=== PATIENT | female | born 1995 ===

== ENCOUNTER 2016-07-02 12:56 | Emergency (ER) | payer MEDICAID ==
[2016-07-02 13:33] VITALS: BP 127/89; PULSE 75; RESP 18; TEMP 98.4; O2SAT 98
--- NOTE | 2016-07-02 13:53 | C.PDOC ---
History Of Present Illness 20 Y/O FEMALE PRESENTS TO ED WITH C/O SORE THROAT, EAR PAIN, SINUS CONGESTION, AND RUNNY NOSE FOR 4 DAYS. PT'S SISTER ALSO IN ER WITH SIMILAR SYMPTOMS. STATES "I FEEL LIKE I HAVE THE FLU". PT DENIES FEVER, CHILLS, NAUSEA, VOMITING, DIARRHEA, COUGH, SHORTNESS OF BREATH, OR OTHER COMPLAINTS. EXAM NEG Time Seen by Provider: 07/02/16 13:13 History Per: Patient History/Exam Limitations: no limitations Onset/Duration Of Symptoms: Days Current Symptoms Are (Timing): Still Present Location Of Pain: Throat Sick Contacts (Context): Family Member(s) Associated Symptoms: Sinus Drainage, Nasal Congestion. denies: Fever, Chills, Cough, Vomiting, Diarrhea Ear Symptoms: Bilateral: Ear Pain Recent travel outside of the [place]: No Past Medical History Reviewed: Historical Data, Nursing Documentation, Vital Signs Vital Signs: Last Vital Signs Temp 98.4 F 07/02/16 13:29 Pulse 75 07/02/16 13:29 Resp 18 07/02/16 13:29 BP 127/89 07/02/16 13:29 Pulse Ox 98 07/02/16 13:53 - Medical History PMH: No Chronic Diseases Family History: States: Unknown Family Hx - Social History Hx Alcohol Use: No Hx Substance Use: No - Immunization History Hx Tetanus Toxoid Vaccination: No Hx Influenza Vaccination: No Hx Pneumococcal Vaccination: No Review Of Systems Except As Marked, All Systems Reviewed And Found Negative. Constitutional: Negative for: Fever, Chills ENT: Positive for: Ear Pain, Throat Pain Respiratory: Negative for: Cough, Shortness of Breath Gastrointestinal: Negative for: Vomiting Skin: Negative for: Rash Neurological: Negative for: Headache, Dizziness Physical Exam - Physical Exam Appears: Non-toxic, No Acute Distress Skin: Normal Color, Warm, Dry Head: Atraumatic, Normacephalic Eye(s): bilateral: Normal Inspection, PERRL, EOMI Ear(s): Bilateral: Normal Nose: Normal Oral Mucosa: Moist Throat: Normal, No Erythema, No Exudate, No Drooling Neck: Supple Chest: Symmetrical Cardiovascular: Rhythm Regular Respiratory: Normal Breath Sounds, No Rales, No Rhonchi, No Wheezing Gastrointestinal/Abdominal: Soft, No Tenderness, No Guarding, No Rebound Back: Normal Inspection Extremity: Normal ROM, Capillary Refill (< 2 SEC.) Neurological/Psych: Oriented x3 ED Course And Treatment O2 Sat by Pulse Oximetry: 98 (RA) Pulse Ox Interpretation: Normal Disposition Counseled Patient/Family Regarding: Diagnosis, Need For Followup - Disposition Referrals: [facility] [Outside] [facility] [Outside] Disposition: HOME/ ROUTINE Disposition Time: 13:52 Condition: GOOD Additional Instructions: TAKE ANY OVER THE COUNTER "COLD MEDICINE" DIRECTED NEEDED Instructions: Cold Symptoms (ED) - Clinical Impression Clinical Impression: Cold - Scribe Statement The provider has reviewed the documentation as recorded by the Kerri Alva Provider Attestation: All medical record entries made by the Kerri were at my direction and personally dictated by me. I have reviewed the chart and agree that the record accurately reflects my personal performance of the history, physical exam, medical decision making, and the department course for this patient. I have also personally directed, reviewed, and agree with the discharge instructions and disposition.
== END 2016-07-02 14:20 | disposition home or self-care (01) ==
LOC: C.ER 12:56
DX: J00 Acute nasopharyngitis [common cold] (principal)

== ENCOUNTER 2016-08-13 09:38 | Emergency (ER) | payer MEDICAID ==
[2016-08-13 10:01] VITALS: TEMP 98.3
--- NOTE | 2016-08-13 10:06 | C.PDOC ---
History Of Present Illness 21 yo female, no prior hx, presents with right adexal pain she had for 3 days. pt states she has a ovarian cyst. pt states no fevers, n/v/d, urinary changes, Time Seen by Provider: 08/13/16 09:54 Chief Complaint (Nursing): Abdominal Pain Past Medical History Reviewed: Historical Data, Nursing Documentation, Vital Signs Vital Signs: Last Vital Signs Temp 98.3 F 08/13/16 09:58 Pulse 68 08/13/16 13:50 Resp 18 08/13/16 13:50 BP 122/77 08/13/16 13:50 Pulse Ox 100 08/13/16 13:50 Family History: States: Unknown Family Hx - Social History Hx Alcohol Use: No Hx Substance Use: No - Immunization History Hx Tetanus Toxoid Vaccination: No Hx Influenza Vaccination: No Hx Pneumococcal Vaccination: No Review Of Systems Gastrointestinal: Positive for: Nausea. Negative for: Vomiting Genitourinary: Positive for: Pelvic Pain (right adexal) Physical Exam - Physical Exam Appears: Well, No Acute Distress, Other (smiling in nad) Skin: Normal Color, Warm, Dry Eye(s): bilateral: Normal Inspection, PERRL, EOMI Nose: Normal Throat: Normal Neck: Normal Cardiovascular: Rhythm Regular Respiratory: Normal Breath Sounds Gastrointestinal/Abdominal: Normal Exam, Soft, Tenderness (right adexal), No Guarding, No Rebound Back: Normal Inspection Extremity: Normal ROM ED Course And Treatment - Laboratory Results Result Diagrams: 08/13/16 10:32 08/13/16 10:32 O2 Sat by Pulse Oximetry: 98 Medical Decision Making Medical Decision Making: suspected ovarian cyst. pt well appearing mild pain. will get us and reassess 220: US shows cyst. pt well appearing in nad. on phone. stable for outpt mangement. Disposition - Disposition Referrals: Jas Navarro [Staff Provider] - [facility] [Outside] [facility] [Outside] [facility] [Outside] Disposition: HOME/ ROUTINE Disposition Time: 14:20 Condition: STABLE Additional Instructions: please follow up with your doctor/clinic and specialist. return to er with worsening symptoms or concerns. Prescriptions: Naproxen [Naprosyn] 500 mg PO BID PRN #14 tablet PRN Reason: Pain, Mild (1-3) Instructions: Ovarian Cyst (ED) - Clinical Impression Clinical Impression: Ovarian cyst
[2016-08-13 10:36] LABS: BASO # 0.1 K/uL (0.0-0.2); BASO % 1.2 % (0.0-2.0); EOS # 0.1 K/uL (0.0-0.7); EOS % 1.2 % (0.0-4.0); HEMATOCRIT 37.7 % (34.0-47.0); LYMPH % 27.3 % (20.0-40.0); MEAN CELL VOLUME 79.8 fL (81.0-99.0); MEAN CORPUSCULAR HEMOGLOBIN 25.7 pg (27.0-31.0); MEAN CORPUSCULAR HGB CONC 32.2 g/dL (33.0-37.0); MEAN PLATELET VOLUME 8.6 fL (7.2-11.7); MONO # 0.9 K/uL (0.0-0.8); MONO % 7.7 % (0.0-10.0); RED CELL DISTRIBUTION WIDTH 13.1 % (11.5-14.5); WHITE BLOOD COUNT 11.1 K/uL (4.8-10.8)
[2016-08-13 10:41] LABS: RBC URINE 1 /hpf (0-3); URINE BILIRUBIN NEGATIVE (NEGATIVE); URINE BLOOD NEGATIVE (NEGATIVE); URINE COLOR Yellow (YELLOW); URINE GLUCOSE (UA) NORMAL (Normal); URINE KETONE NEGATIVE (NEGATIVE); URINE LEUKOCYTE ESTERASE NEG Leu/uL (Negative); URINE PROTEIN NEGATIVE (NEGATIVE); URINE UROBILINOGEN NORMAL mg/dL (0.2-1.0); WBC URINE 1 /hpf (0-5)
[2016-08-13 10:45] LABS: CHLORIDE 102 mmol/L (98-107); POTASSIUM 4.1 mmol/L (3.6-5.2); SODIUM 136 mmol/L (132-148)
[2016-08-13 10:47] LABS: AST/SGOT 19 U/L (14-36); BILIRUBIN,TOTAL 0.9 mg/dL (0.2-1.3); CARBON DIOXIDE 26 mmol/L (22-30); GFR AFRICAN-AMERICAN > 60
[2016-08-13 10:48] LABS: ALKALINE PHOSPHATASE 113 U/L (38-126); ALT/SGPT 21 U/L (9-52); BLOOD UREA NITROGEN 12 mg/dL (7-17); CALCIUM 8.2 mg/dl (8.6-10.4); GLUCOSE,RANDOM 98 mg/dL (65-105); TOTAL PROTEIN 7.2 g/dL (6.3-8.3)
[2016-08-13 13:51] VITALS: BP 122/77; PULSE 68; RESP 18
--- NOTE | 2016-08-13 13:58 | US ---
HISTORY: right sided pelvic pain COMPARISON: None available. TECHNIQUE: Transabdominal and transvaginal FINDINGS: UTERUS: Measures 7.7 x 3.8 x 4.4 cm. Normal in size and appearance. No fibroid or other mass lesion seen. ENDOMETRIUM: Measures 11 mm in diameter. Unremarkable. CERVIX: No cervical abnormality identified. RIGHT OVARY: Measures 4.5 x 2.8 x 3.6 cm. No solid mass. Normal flow. Complex cyst with internal septations measuring 2.7 x 2.1 x 2.2 cm. Likely resolving hemorrhagic cyst. Followup transvaginal pelvic ultrasound examination is advised in 6-8 weeks. LEFT OVARY: Measures 2.6 x 2.3 x 2.1 cm. No solid mass. Normal flow. FREE FLUID: There is mild free fluid in the pelvis, in the cul-de-sac and right adnexal region. OTHER FINDINGS: None. IMPRESSION: 2.7 cm complex right ovarian cyst. Recommend followup transvaginal pelvic ultrasound examination in 6-8 weeks. Mild free fluid in cul-de-sac and right adnexal region. Nonspecific. No additional abnormality. 2.22
[2016-08-13 14:23] VITALS: O2SAT 98
== END 2016-08-13 14:33 | disposition home or self-care (01) ==
LOC: C.ER 09:38
DX: N83.209 Unspecified ovarian cyst, unspecified side (principal)
CPT/HCPCS: 76830; 76856; 80053; 81001; 83690; 84703; 85025; 85610; 85730; 96374; 96375; 99285; J1885; J2405